=== PATIENT | male | born 1990 | race Caucasian/White ===

== ENCOUNTER → 2022-10-24 | Outpatient (CLI) | payer OTHER, SELFPAY ==
[2022-10-24 18:36] LABS: ALB/GLOB Ratio 1.1 RATIO (0.9-2.4); AST(SGOT) 32 U/L (15-37); Absolute Lymphocyte Count 2.35 X10^3/uL (0.83-4.51); Absolute Neutrophil Count 5.6 X10^3/uL (2.0-7.7); Alanine Aminotransfer ALT/SGPT 82 U/L (16-61); Albumin, Serum 3.7 g/dL (3.2-5.0); Alkaline Phosphatase 73 U/L (45-117); Amylase 47 U/L (25-115); Anion Gap 8 (5-15); BUN 16 mg/dL (7-18); BUN/Creat Ratio 16.6 RATIO (10-20); Basophil# 0.07 X10^3/uL; Basophil% 0.8 % (0-1); Calcium,Total 8.9 mg/dL (8.5-10.1); Chloride 107 mmol/L (98-107); Creatinine, Serum 0.96 mg/dL (0.70-1.30); EST Glomerular Filtration Rate 97 mL/min (>60); Eosinophil# 0.13 X10^3/uL; Eosinophils% 1.4 % (0-5); Est Glom Filt Rate - Afr Amer 118 mL/min (>60); Globulin 3.5 g/dL (2.2-4.2); Glucose 81 mg/dL (74-106); Hematocrit 42.9 % (40-54); Hemoglobin 14.6 g/dL (13.0-16.5); Lipase 18 U/L (13-75); Lymphocyte # 2.35 X10^3/ul (0.83-4.51); Lymphocyte % 26.2 % (19-41); Mean Corpuscular Hgb 30.9 pg (27.0-32.0); Mean Corpuscular Volume 90.7 fL (80-94); Mean Platelet Vol. 10.7 fl (6.2-12.0); Monocyte# 0.79 X10^3/uL; Monocyte% 8.8 % (0-10); NRBC Flagged by Analyzer 0 % (0-5); Neutrophil % 62.4 % (47-70); Platelet Count 296 K/mm3 (150-450); Potassium 3.6 mmol/L (3.5-5.1); Protein, Total 7.2 g/dL (6.4-8.2); RBC Distribution Width CV 12.7 % (11.6-14.6); RBC Distribution Width SD 42.3 fl (35.1-43.9); Red Blood Count 4.73 M/mm3 (4.6-6.2); Sodium Level 142 mmol/L (136-145)
== END | disposition home or self-care (01) ==
LOC: MTLAB 14:41
PROVIDERS: PCP Family Medicine; Referring Provider Family Medicine; Visit Provider Family Medicine
DX: R19.7 Diarrhea, unspecified (principal)
CPT/HCPCS: 36415; 80053; 82150; 83690; 85025

== ENCOUNTER → 2022-10-30 | Outpatient (CLI) | payer OTHER, SELFPAY ==
--- NOTE | 2022-10-30 07:21 | US_ITS ---
STUDY: ABDOMINAL ULTRASOUND - RIGHT UPPER QUADRANT REASON FOR VISIT: Male, 32 years old right upper quadrant pain, nausea TECHNIQUE: Ultrasound evaluation of the right upper quadrant was performed with real-time and static quintero-scale imaging. TECHNICAL QUALITY: Limited. Examination limited by bowel gas. COMPARISON: None. FINDINGS: Liver: The liver measures 19.1 cm. There is increased echogenicity consistent with fatty infiltration. The bile ducts are within normal limits. There is hepatic color flow. The direction of portal flow is hepatopetal. There is no demonstrated mass lesion. Gallbladder: Normal distended gallbladder. The gallbladder wall measures 2.6 mm. There is a negative sonographic Moore''s sign. There is no pericholecystic fluid. There are no gallstones. Common Bile Duct (C.B.D.): The common bile duct measures 3.0 mm. Pancreas: Visualized pancreas is sonographically normal Right Kidney: Normal size of the right kidney. The right kidney measures 12.0 x 5.0 x 5.2 cm. Normal renal cortex. The right cortex measures 1.3 cm. There is no demonstrated renal mass or cyst. There is no right hydronephrosis. US/Abdomen Limited IMPRESSION: Hepatomegaly with diffuse fatty infiltration of the liver, no discrete lesion Electronically Signed: Warren Simpson MD at 9:26 EDT ,
== END | disposition home or self-care (01) ==
LOC: US 07:20
PROVIDERS: PCP Family Medicine; Referring Provider Family Medicine; Visit Provider Family Medicine
DX: R19.7 Diarrhea, unspecified (principal)
CPT/HCPCS: 76705

== ENCOUNTER → 2023-05-23 | Outpatient (CLI) | payer OTHER, SELFPAY ==
--- NOTE | 2023-05-23 09:49 | NM_ITS ---
CLINICAL: 32-year-old male with history of chronic abdominal pain-nausea. RADIONUCLIDE HEPATOBILIARY SCINTIGRAPHY COMPARISON: None available FINDINGS: Following the intravenous administration of 5.2 mCi of 99m Tc Mebrofenin, hepatobiliary images reveal: 1. Relatively prompt and homogeneous radiopharmaceutical concentration is noted by a normal sized liver. No parenchymal defects are identified. 2. Gallbladder activity is identified at 17 minutes post radiopharmaceutical administration. 3. Small intestinal tract is observed at 12 minutes following tracer injection. 4. Washout of the radiopharmaceutical by the hepatic parenchyma appears qualitatively normal. NM/Hepatobilliary Imaging IMPRESSION: 1. NORMAL 99m Tc Mebrofenin hepatobiliary imaging examination. A. Visualization of the gallbladder within 60 minutes post radiopharmaceutical administration excludes acute cholecystitis with 97% certitude. (Alyson et al, Nucl Med Marilyn Yue Press pg. 35, 1980). B. Further evaluation of this individual may be undertaken utilizing CCK augmented hepatobiliary scintigraphy if deemed clinically appropriate, applicable. (Jaswinder Oreilly et al, J Nucl Med 32: 1695, 1990). Electronically Signed: Kenneth Gregory DO at 22:23 EDT ,
== END | disposition home or self-care (01) ==
LOC: NM 09:49
PROVIDERS: PCP Family Medicine; Referring Provider Family Medicine; Visit Provider Family Medicine
DX: R19.7 Diarrhea, unspecified (principal); R10.9 Unspecified abdominal pain; R11.0 Nausea
CPT/HCPCS: 78226; A9537

== ENCOUNTER 2023-08-03 07:55 | Day surgery (SDC) | payer OTHER, SELFPAY ==
--- NOTE | 2023-08-03 | GASB_PTH ---
PATIENT: GRETTA LIVINGSTON LOC: EN U#:[id number] AGE/SX: 33/M ROOM: RE08/03/[address]: Dr. Bill Moore MD : 1990 BED: DIS: 08/03/2023 SPEC #: [id number] RECD: 08/03/23 13:51 STATUS: NESTOR LANDY #: [id number] LUCAS: 08/03/23 00:[address]: Bill Moore DEPT: SURGICAL PATHOLOGY RECD BY: Nik Silver ENTERED: 08/03/23 13:51 SP TYPE: Gastric Bx OTHR DR: Nohemy Evans MD Tissues: A - Gastric mucous membrane B - Gastric mucous membrane C - COLON BIOPSY Procedures: Surgery Specimen Level IV HEADER OPERATION: Colonoscopy with biopsies, EGD PRE-OP DIAGNOSIS: Acid reflux, diarrhea TISSUE SUBMITTED: A- Antrum biopsy, B- Gastroesophageal junction biopsy, C- Random colon biopsies MICROSCOPIC DIAGNOSIS A. Gastric antrum, biopsy: Minimal chronic inflammation. See comment. B. Gastroesophageal junction, biopsy: Mild chronic inflammation. No evidence of goblet cell metaplasia. See comment. C. Colon, random biopsies: No pathologic change. AM/ 08/06/2023 COMMENT A. The results of immunohistochemistry for Helicobacter pylori will be reported separately ([id number]). B. Alcian blue/PAS stain with matched control supports the above diagnosis. MICROSCOPIC DESCRIPTION Slides are reviewed. GROSS DESCRIPTION A. Received in fixative is one container labeled with the patient's name and designated Antrum biopsy. The specimen consists of two irregular fragments of light daley soft tissue that in aggregate measure 0.5 x 0.5 x 0.1 cm. The specimen is totally submitted in one cassette. B. Received in fixative is one container labeled with the patient's name and designated GE junction. The specimen consists of two irregular fragments of light daley soft tissue that in aggregate measure 0.3 x 0.2 x 0.1 cm. The specimen is totally submitted in one cassette. C. Received in fixative is one container labeled with the patient's name and designated Random colon biopsy. The specimen consists of multiple irregular fragments of light daley soft tissue that in aggregate measure 1.0 x 0.3 x 0.1 cm. The specimen is totally submitted in one cassette. Cary 08/03/2023 TC:5 CPT:16522m7,70174
[2023-08-03 08:22] VITALS: BP 111/78; PULSE 68; RESP 12; TEMP 36.5; O2SAT 100; BMI 31.6
[2023-08-03] MEDS: Lactated Ringers 1,000 ML 15 ML IV (08:28)
--- NOTE | 2023-08-03 08:55 | HP.PCM_ITS ---
History and Physical Date of Admission: 08/03/23 Intake Vital Signs 06/24/2413:09 Weight: 240 lb BP 109/70 Blood Pressure Location Rt brachial Position Sitting Respiration 17 Pulse 77 Pulse Source Monitor Temp 97.3 F L Temp Source Temporal Pulse Oximetry (%) 99 Oxygen Delivery Method room air Intake Visit Reasons: Gastroesophageal reflux disease (GERD) Chief Complaint: GERD Is patient in pain?: No Allergies amoxicillin Allergy (Intermediate, Verified 06/25/23 14:11) RashSulfa (Sulfonamide Antibiotics) Allergy (Intermediate, Verified 06/25/23 14:11) Rash Medications multivitamin 1 tab PO DAILY 06/25/23 [History Confirmed 06/25/23] omeprazole 20 mg tablet,delayed release 20 mg PO QDAY 06/25/23 [History Confirmed 06/25/23] PFSH Surgical History (Updated 06/25/23 @ 14:08 by Stephanie Love) H/O vasectomy Family History (Updated 06/25/23 @ 14:08 by Stephanie Love) Uncle Diabetes Colon cancer Social History (Updated 06/25/23 @ 14:09 by Stephanie Love) Smoking Status: Never smoker alcohol intake: never substance use type: does not use HPI HPI HPI: Patient is a 32-year-old male here with diarrhea. He was sent here because of possible gallbladder disease but had a HIDA that showed normal filling. There was no CCK ordered. He reports that he totally eats a fatty meal he immediately has diarrhea. He says that every morning he goes to the bathroom from the time he wakes up until about noon [id number] because he has 4-7 bowel movements a morning. He says they are all liquid or diarrhea and does not not have solid stool. He does not complain of any abdominal pain. He said he had some right upper quadrant pain at first but that has gone away and now he is still having diarrhea. He denies any reflux currently but he did have GERD in the past and he is on PPI and has been for 2 years. He also reports small amount of bright red blood in his stool. ROS General General: Yes weight change and fatigue; No appetite, colon cancer, breast cancer or weakness Additional Details: loss of possible 10# HEENT HEENT: No difficulty swallowing, eye injury, eye surgery, swollen glands or hoarseness Endo Endocrine: No thyroid disease, diabetes mellitus, thyroid cancer, Hair loss, heat intolerance or cold intolerance Skin Skin: No rash or changing moles Musc Musculoskeletal: No back problems, arthritis, rheumatoid arthritis, gout or joint pain Cardio Cardiovascular: No murmur, pacemaker, heart disease, atrial fibrillation, high blood pressure, heart attack, heart stent, palpitations, shortness of breat with exertion or chest pain Psych Psychiatric: No depression, anxiety or hearing voices Resp Respiratory: No shortness of breath, No sleep apnea, No cough, No COPD, No asthma, No emphysema and No wheezing Gastro Gastrointestinal: No abdominal pain, Yes nausea or vomiting, Yes diarrhea, No constipation, Yes blood in stool, Yes acid reflux, Yes hemorrhoids, No ulcers, Yes gallbladder problem and No black,tarry stools Shorty Hematologic: No blood thinners, No blood disorders, No bleeding, No anemia and No blood clots Neuro Neurologic: No system reviewed and no additional complaints, except as documented, No as per HPI, No abnormal gait, No abnormal hearing, No abnormal movements, No abnormal speech, No behavioral changes, No burning sensations, No confusion, No convulsions, No disequilibrium, No dizziness, No localized weakness, No frequent falls, No headache(s), No lack of coordination, No loss of vision, No memory loss, No numbness, No other visual disturbances, No radicular pain, No restless legs, No sensory deficit, No syncope, No tingling, No tremor(s), No weakness and No other Exam Const General: cooperative Orientation: alert and oriented x3 HENMT Head: normal to inspection Neck Neck: normal visual inspection and full ROM Chest Chest palpation & inspection: normal inspection of the chest Resp Effort & Inspection: normal respiratory effort Auscultation: clear to auscultation bilaterally Cardio Rate: regular rate Rhythm: regular rhythm GI Inspection: non-distended Palpation: soft and nontender Skin General: no rashes or lesions noted Neuro General: patient alert and patient oriented x3 Extrem General: full ROM Psych Appearance: grossly normal Mental Status: mental status grossly normal Assessment and Plan Assessment and Plan (1) Acid reflux: Status: Acute Qualifiers: Esophagitis presence: esophagitis presence not specified Qualified Code(s): K21.9 - Gastro-esophageal reflux disease without esophagitis (2) Diarrhea: Status: Acute Qualifiers: Diarrhea type: unspecified type Qualified Code(s): R19.7 - Diarrhea, unspecified Orders: Orders Colonoscopy 06/25/23 EGD 06/25/23 Plan The patient reports that every time he eats he immediately has bowel movements. He also reports multiple bowel movements in the morning. This seems to be more gastritis as he does not describe any pain with it. He is very concerned that his gallbladder is the issue but he has had a gallbladder ultrasound that shows no stones as well as a HIDA scan that showed immediate filling. There was no CCK done. At this time it sounds more like gastritis although the patient is on a PPI. I would like to perform an EGD and colonoscopy to evaluate and take biopsies of the colon to check for microscopic colitis or inflammatory bowel disease. I explained endoscopy in detail to the patient. I explained the risks including but not limited to stroke or heart attack with anesthesia, perforation of the GI tract, bleeding, infection. I explained that any of these could necessitate further emergency surgery. The patient understands and all questions were answered sufficiently. The patient wishes to proceed with procedure. Bill Moore MD Pager: [facility] [address] [place] [address] [address] [place] [address] Office: I have examined the patient and the H&P has been reviewed. There are no clinical changes since date of exam.
--- NOTE | 2023-08-03 09:00 | IMM_PTH ---
PATIENT: GRETTA LIVINGSTON LOC: EN U#:[id number] AGE/SX: 33/M ROOM: RE08/03/[address]: Dr. Bill Moore MD : 1990 BED: DIS: 08/03/2023 SPEC #: [id number] RECD: 08/03/23 13:09 STATUS: NESTOR REVicki #: [id number] LUCAS: 08/03/23 09:[address]: Bill Moore DEPT: IMMUNOHISTOCHEMISTRY RECD BY: Cam Cannon ENTERED: 08/03/23 13:10 SP TYPE: IMMUNO OTHR DR: Nohemy Evans MD Tissues: A - Gastric mucous membrane Procedures: H Pylori (initial) PHYSICIAN & INSTITUTION [place] [id number] SPECIMEN INFORMATION: Tissue Source: A- Gastric antrum biopsy Clinical Info: Acid reflux, diarrhea Specimen Number: [id number] CPT code: 94049 METHODOLOGY: Deparaffinized sections of prefer/formalin-fixed tissue or PAP/DQ stained slides are incubated with monoclonal/polyclonal antibodies/oligonucleotide probes. Localization is made via biotin free immunoperoxidase method. Appropriate controls are performed and reacted as expected. Results on target cell population are indicated in the following table: RESULTS: ANTIBODY / CLONE RESULT Block A H Pylori (polyclonal) negative These tests were developed and their performance characteristics determined by [facility]. They may not have been cleared or approved by the U.S. Food and Drug Administration. The FDA has determined that such clearance or approval is not necessary. The above immunohistochemical/dualISH markers are ordered and reviewed by the Pathologist. INTERPRETATION: A. Gastric antrum, biopsy: Negative for Helicobacter pylori organisms. EUGENIA/ 08/06/23
[2023-08-03 09:30] VITALS: BP 111/78; BP 113/78; PULSE 78; RESP 16; TEMP 36.5; O2SAT 96
[2023-08-03 09:35] VITALS: BP 108/74; BP 111/78; PULSE 70; RESP 16; O2SAT 95
[2023-08-03 09:40] VITALS: BP 109/73; BP 111/78; PULSE 69; RESP 16; TEMP 36.4; O2SAT 96
--- NOTE | 2023-08-03 09:54 | OP.EGD_ITS ---
Patient Name: Jelani Manning Procedure Date: 08/03/2023 9:00 AM Date of : 1990 Age: 33 Procedure: Upper GI endoscopy Indications: Diarrhea Providers: Bill Moore MD Referring MD: Lady Matson Medicines: Propofol per Anesthesia Patient Profile: This is a 33 year old male. Refer to note in patient chart for documentation of history and physical. Complications: No immediate complications. Estimated blood loss: Minimal. Procedure: Pre-Anesthesia Assessment: - Prior to the procedure, a History and Physical was performed, and patient medications and allergies were reviewed. The patient's tolerance of previous anesthesia was also reviewed. The risks and benefits of the procedure and the sedation options and risks were discussed with the patient. All questions were answered, and informed consent was obtained. Prior Anticoagulants: The patient has taken no anticoagulant or antiplatelet agents. After reviewing the risks and benefits, the patient was deemed in satisfactory condition to undergo the procedure. After obtaining informed consent, the endoscope was passed under direct vision. Throughout the procedure, the patient's blood pressure, pulse, and oxygen saturations were monitored continuously. The gastroscope was introduced through the mouth, and advanced to the second part of duodenum. The upper GI endoscopy was accomplished without difficulty. The patient tolerated the procedure well. Scope In: 9:09:00 AM Scope Out: 9:12:41 AM Total Procedure Duration Time 0 hours 3 minutes 41 seconds Findings: [Site] was. Biopsies were taken with a cold forceps for Helicobacter pylori testing. Non-severe esophagitis with no bleeding was found at the gastroesophageal junction. Biopsies were taken with a cold forceps for histology. The examined duodenum was normal. Impression: - Normal stomach. Biopsied. - Non-severe reflux esophagitis with no bleeding. Biopsied. - Normal examined duodenum. Recommendation: - Discharge patient to home. - Resume previous diet. - Continue present medications. - Await pathology results. Procedure Code(s): --- Professional --- 38262, Esophagogastroduodenoscopy, flexible, transoral; with biopsy, single or multiple Diagnosis Code(s): --- Professional --- K21.00, Gastro-esophageal reflux disease with esophagitis, without bleeding R19.7, Diarrhea, unspecified CPT copyright 2021 [employer]. All rights reserved. The codes documented in this report are preliminary and upon maid housekeeper review may be revised to meet current compliance requirements. Bill Moore MD 08/03/2023 9:53:53 AM This report has been signed electronically. Number of Addenda: 0 Note Initiated On: 08/03/2023 9:00 AM
--- NOTE | 2023-08-03 09:54 | OP.CCLET_ITS ---
08/03/2023 Yessy Herron, Re : Upper GI endoscopy procedure for Jelani Manning Dear Germaine This procedure was performed on Thursday, August 03, 2023. My impressions and recommendations are as follows: Impressions : - Normal stomach. Biopsied. - Non-severe reflux esophagitis with no bleeding. Biopsied. - Normal examined duodenum. Recommendations : - Discharge patient to home. - Resume previous diet. - Continue present medications. - Await pathology results. My findings are described in the full procedure note, which is enclosed. If I can be of further assistance, please feel free to contact me at Doctor phone number(s): , Work: . Sincerely, Bill Moore MD 08/03/2023 9:53:53 AM This report has been signed electronically.
--- NOTE | 2023-08-03 09:56 | OP.COLON_ITS ---
Patient Name: Jelani Manning Procedure Date: 08/03/2023 9:13 AM Date of : 1990 Age: 33 Procedure: Colonoscopy Indications: Chronic diarrhea Providers: Bill Moore MD Referring MD: Lady Matson Medicines: Propofol per Anesthesia Patient Profile: This is a 33 year old male. Refer to note in patient chart for documentation of history and physical. Last Colonoscopy: none. The patient's first colonoscopy is today. Complications: No immediate complications. Procedure: Pre-Anesthesia Assessment: - Prior to the procedure, a History and Physical was performed, and patient medications and allergies were reviewed. The patient's tolerance of previous anesthesia was also reviewed. The risks and benefits of the procedure and the sedation options and risks were discussed with the patient. All questions were answered, and informed consent was obtained. Prior Anticoagulants: The patient has taken no anticoagulant or antiplatelet agents. After reviewing the risks and benefits, the patient was deemed in satisfactory condition to undergo the procedure. - Prior to the procedure, a History and Physical was performed, and patient medications and allergies were reviewed. The patient's tolerance of previous anesthesia was also reviewed. The risks and benefits of the procedure and the sedation options and risks were discussed with the patient. All questions were answered, and informed consent was obtained. Prior Anticoagulants: The patient has taken no anticoagulant or antiplatelet agents. After reviewing the risks and benefits, the patient was deemed in satisfactory condition to undergo the procedure. After I obtained informed consent, the scope was passed under direct vision. Throughout the procedure, the patient's blood pressure, pulse, and oxygen saturations were monitored continuously. The Colonoscope was introduced through the anus and advanced to the cecum, identified by appendiceal orifice and ileocecal valve. The colonoscopy was performed without difficulty. The patient tolerated the procedure well. The quality of the bowel preparation was good. The ileocecal valve, appendiceal orifice, and rectum were photographed. Scope In: 9:16:49 AM Scope Withdrawal Time 0 hours 5 minutes 53 seconds Scope Out: 9:25:39 AM Total Procedure Duration Time 0 hours 8 minutes 50 seconds Findings: The entire examined colon appeared normal on direct and retroflexion views. Biopsies for histology were taken with a cold forceps from the entire colon for evaluation of microscopic colitis. The exam was otherwise without abnormality on direct and retroflexion views. Impression: - The entire examined colon is normal on direct and retroflexion views. - The examination was otherwise normal on direct and retroflexion views. - Biopsies were taken with a cold forceps from the entire colon for evaluation of microscopic colitis. Recommendation: - Discharge patient to home. - Resume previous diet. - Continue present medications. - Repeat colonoscopy at age 47 for screening purposes. Procedure Code(s): --- Professional --- 32456, Colonoscopy, flexible; with biopsy, single or multiple Diagnosis Code(s): --- Professional --- K52.9, Noninfective gastroenteritis and colitis, unspecified CPT copyright 2021 [employer]. All rights reserved. The codes documented in this report are preliminary and upon gathering machine feeder review may be revised to meet current compliance requirements. Bill Moore MD 08/03/2023 9:55:54 AM This report has been signed electronically. Number of Addenda: 0 Note Initiated On: 08/03/2023 9:13 AM
--- NOTE | 2023-08-03 09:56 | OP.CCLET_ITS ---
08/03/2023 Yessy Herron, Do Re : Colonoscopy procedure for Jelani Manning Dear Germaine This procedure was performed on Thursday, August 03, 2023. My impressions and recommendations are as follows: Impressions : - The entire examined colon is normal on direct and retroflexion views. - The examination was otherwise normal on direct and retroflexion views. - Biopsies were taken with a cold forceps from the entire colon for evaluation of microscopic colitis. Recommendations : - Discharge patient to home. - Resume previous diet. - Continue present medications. - Repeat colonoscopy at age 47 for screening purposes. My findings are described in the full procedure note, which is enclosed. If I can be of further assistance, please feel free to contact me at Doctor phone number(s): , Work: . Sincerely, Bill Moore MD 08/03/2023 9:55:54 AM This report has been signed electronically.
[2023-08-03 10:08] VITALS: BP 111/78
== END 2023-08-03 10:17 | disposition home or self-care (01) ==
LOC: EN 07:58 → AC 08:03
PROVIDERS: PCP Family Medicine; Referring Provider Surgery; Visit Provider Surgery
PROC: 0DJD8ZZ Inspection of Lower Intestinal Tract, Via Natural or Artificial Opening Endoscopic (ICD-10-PCS; CPT 45378; principal; 2023-08-03 08:55)
DX: K21.00 Gastro-esophageal reflux disease with esophagitis, without bleeding (principal); Z79.899 Other long term (current) drug therapy; Z98.52 Vasectomy status; R19.7 Diarrhea, unspecified; K29.50 Unspecified chronic gastritis without bleeding
CPT/HCPCS: 43239; 45380; 88305; 88342; J7120; J2405